=== PATIENT | male | born 1985 | race Two or more races ===

== ENCOUNTER 2017-05-09 04:20 | Emergency (ER) | payer SELFPAY ==
[~2017-05-09] VITALS: Ht 180.3 cm; Wt 87.1 kg
[2017-05-09] MEDS ORDERED: fentaNYL CITRATE 5 ML ONE (09:19)
[2017-05-09] MEDS ORDERED: MIDAZOLAM HCL 1MG/1ML-2 ML VIAL ONE ×2 (09:20→09:26)
[2017-05-09] MEDS ORDERED: MIDAZOLAM HCL 5 MG/ML-1ML VIAL IV ONE (10:30)
[2017-05-09] MEDS ORDERED: fentaNYL CITRATE 100 MCG/2 ML VL IV ONE (10:30)
[2017-05-09 11:32] VITALS: BP 128/72
== END 2017-05-09 11:37 | disposition home or self-care (01) ==
LOC: ER 04:20
DX: S43.005A Unspecified dislocation of left shoulder joint, initial encounter (principal); S62.304A Unspecified fracture of fourth metacarpal bone, right hand, initial encounter for closed fracture; S00.03XA Contusion of scalp, initial encounter; Y08.89XA Assault by other specified means, initial encounter; Y93.89 Activity, other specified; Y99.8 Other external cause status; Y92.89 Other specified places as the place of occurrence of the external cause
CPT/HCPCS: 23650; 70450; 73020; 73030; 73130; 94760; 96374; 99152; 99285; J2250; J3010

== ENCOUNTER → 2017-05-09 | Emergency (ER) | payer SELFPAY | END | disposition left against medical advice (07) | LOC: ER 03:02 | DX: M79.602 Pain in left arm (principal); Z53.21 Procedure and treatment not carried out due to patient leaving prior to being seen by health care provider ==